=== PATIENT | male | born 1960 | race Hispanic/Latino ===

== ENCOUNTER 2017-10-13 02:51 | Emergency (ER) | payer MEDICAID ==
[2017-10-13 03:10] VITALS: BP 186/98; PULSE 93; RESP 16; TEMP 97.8; O2SAT 100
--- NOTE | 2017-10-13 05:31 | C.PDOC ---
History Of Present Illness 57 year old male presents to the ER with a complaint of pain to the right hand. Patient reports he uses his hands a lot at work but does not recall any injury to the area. Denies weakness or numbness. Time Seen by Provider: 10/13/17 03:14 Chief Complaint (Nursing): Upper Extremity Problem/Injury History Per: Patient History/Exam Limitations: no limitations Onset/Duration Of Symptoms: Hrs Current Symptoms Are (Timing): Still Present Exacerbating Factor(s): Strenuous Use Of Affected Area Recent travel outside of the [place]: No Past Medical History Reviewed: Historical Data, Nursing Documentation, Vital Signs Vital Signs: Last Vital Signs Temp 97.8 F 10/13/17 03:00 Pulse 93 H 10/13/17 03:00 Resp 16 10/13/17 03:00 BP 186/98 H 10/13/17 03:00 Pulse Ox 100 10/13/17 05:37 - Medical History PMH: No Chronic Diseases - [facility] Procedures ETHMOIDECTOMY (12/21/01) INTRANAS LES DESTRUCTION (12/21/01) INTRANASAL ANTROTOMY (12/21/01) SPHENOIDOTOMY (12/21/01) SUBMUC NASAL SEPT RESECT (12/21/01) Family History: States: Unknown Family Hx - Social History Hx Alcohol Use: No Hx Substance Use: No - Immunization History Hx Tetanus Toxoid Vaccination: No Hx Influenza Vaccination: No Hx Pneumococcal Vaccination: No Review Of Systems Musculoskeletal: Positive for: Hand Pain Neurological: Negative for: Weakness, Numbness Physical Exam - Physical Exam Appears: Non-toxic, No Acute Distress Skin: Warm, Dry Head: Atraumatic, Normacephalic Eye(s): bilateral: Normal Inspection Extremity: Tenderness (Webbed space between 1st and 2nd finger of right hand), Capillary Refill (<2 seconds), No Deformity, Other (Superficial scattered excoriations to dorsum of hand. Callus to palmar aspect of hands due to over use.) Pulses: Left Radial: Normal, Right Radial: Normal Neurological/Psych: Oriented x3, Normal Speech, Normal Motor, Normal Sensation ED Course And Treatment O2 Sat by Pulse Oximetry: 100 (Room air) Pulse Ox Interpretation: Normal Progress Note: Motrin and right hand x-ray ordered, however, patient eloped prior to x-ray and medication. Disposition - Disposition Disposition: ELOPEMENT - ER ONLY Disposition Time: 05:00 Condition: GOOD Forms: [facility] (Faroese) - Clinical Impression Clinical Impression: Hand pain, right - PA / DRILLER'S ASSISTANT / Resident Statement MD/DO has reviewed & agrees with the documentation as recorded. - Scribe Statement The provider has reviewed the documentation as recorded by the Scribe Jamie Rose All medical record entries made by the Scribe were at my direction and personally dictated by me. I have reviewed the chart and agree that the record accurately reflects my personal performance of the history, physical exam, medical decision making, and the department course for this patient. I have also personally directed, reviewed, and agree with the discharge instructions and disposition.
== END 2017-10-13 03:55 | disposition left against medical advice (07) ==
LOC: C.ER 02:51
DX: M79.641 Pain in right hand (principal)